=== PATIENT | female | born 1980 | race Caucasian/White ===

== ENCOUNTER 2017-08-04 12:51 | Outpatient (RCR) | payer MEDICARE, SELFPAY | END 2017-09-08 14:57 | disposition home or self-care (01) | LOC: PT 12:51 | PROVIDERS: Family Provider Internal Medicine Adolescent Medicine | DX: J44.9 Chronic obstructive pulmonary disease, unspecified (principal) | CPT/HCPCS: G0237; G0238; G0424 ==

== ENCOUNTER 2017-10-27 08:30 | Outpatient (RCR) | payer MEDICARE, SELFPAY | END 2017-10-27 08:31 | disposition home or self-care (01) | LOC: PT 08:30 | PROVIDERS: Family Provider Internal Medicine Adolescent Medicine; Visit Provider Family Medicine | DX: I89.0 Lymphedema, not elsewhere classified (principal) | CPT/HCPCS: 97140; 97162 ==

== ENCOUNTER 2018-02-28 08:04 | Outpatient (RCR) | payer MEDICARE, SELFPAY | END 2018-04-20 16:38 | disposition home or self-care (01) | LOC: PT 08:04 | DX: R09.02 Hypoxemia (principal) | CPT/HCPCS: G0237; G0238 ==

== ENCOUNTER → 2021-08-18 09:12 | Outpatient (CLI) | payer MEDICARE, SELFPAY ==
--- NOTE | 2021-08-18 09:17 | MR_ITS ---
FINAL REPORT CLINICAL HISTORY: PAIN IN LT ANKLE AND JOINTS OF LT FOOT. prior mri at [place] 2 months ago. fell 4 months ago. sprain ankle in brace x2wks. no recent injury or trauma. 28ml prohance given. FINDINGS: Multiplanar MR imaging of the left ankle was performed with and without contrast. The bony structures are intact without evidence of fracture, bone bruise or marrow edema. No osteochondral lesion is identified. There is thinning of the anterior talofibular ligament, favor partial tear. There is peroneus longus and brevis tenosynovitis with a partial longitudinal tear of the peroneus longus. No significant joint effusion is seen. The musculature is intact. There is no evidence of soft tissue mass or cyst. There is no abnormal contrast enhancement. IMPRESSION: Favor a partial tear of the anterior talofibular ligament. Partial tear of the peroneus longus with tenosynovitis as detailed above. Reviewed, Interpreted and Dictated by Hood Bucio III, MD Transcribed by Katerin Khan Authenticated by Hood Bucio III, MD on 08/18/2021 01:59:[address] [facility]
== END ==
PROVIDERS: PCP Family Medicine; Visit Provider Orthopaedic Surgery Adult Reconstructive Orthopaedic Surgery
DX: M25.572 Pain in left ankle and joints of left foot (principal)
CPT/HCPCS: 73723; A9576

== ENCOUNTER 2024-04-04 13:06 | Emergency (ER) | payer MEDICARE, SELFPAY ==
[2024-04-04 13:07] VITALS: BP 148/85; PULSE 119; RESP 19; TEMP 37.6; O2SAT 96; BMI 59.1
--- NOTE | 2024-04-04 13:12 | ECG_ITS ---
APPROVED REPORT Exam: Resting ECG HR:119 bpm ECG Measurements Heart Rate 119 AXES WY 155 P 51 QRSd 102 QRS 48 QT 301 T 10 QTc 371 Conclusion SINUS TACHYCARDIA LOW QRS VOLTAGE IN PRECORDIAL LEADS [QRS DEFLECTION < 1.0 mV IN CHEST LEADS] ABNORMAL RHYTHM ECG Electronically signed by : BITA STEVENS, 04/04/2024 15:30:28
[2024-04-04 13:25] LABS: Coronavirus 19, PCR Not Detected (NotDetected); Influenza B, PCR Not Detected (NotDetected)
--- NOTE | 2024-04-04 13:31 | HMH.EDGENADL ---
Discharge Plan Disposition Patient Disposition: Home, Self-Care Condition: Good Prescriptions Prescriptions: New oseltamivir [Tamiflu] 75 mg capsule 75 mg PO BID 5 Days Qty: 10 0RF Referrals Follow up/Referrals: Isai Marc [Primary Care Provider] - See instructions Activity Restrictions/Add. Instructions Additional Instructions/Restrictions: Please follow-up with your PCP next week for your recheck. Please return to the ER for any increasing work of breathing decreased oxygen saturation increasing oxygen needs as needed. Clinical Impressions Clinical Impression: Influenza A Instructions Patient Instructions: DI for Influenza -- Adult Print Language Print Language: Swazi Discharge ED Provider: Mario Natarajan General Adult HPI <IDALIA Marshall - Last Filed: 04/04/24 16:42> General Chief complaint: Shortness of Breath/Dyspnea Stated complaint: fever 102.7,SOA on O2,body aches Time Seen by Provider: 04/04/24 13:30 Mode of Arrival: Ambulatory Source of Information: Patient Limitations: No Limitations Description of Symptoms (Recalled from ER Triage Doc. by RN): pt presents to ED with c/o shortness of air, chest pressure, fever. pt does wear oxygen baseline, 2.5L. pt reports symptoms ongoing today. History of Present Illness HPI narrative: Patient presents for evaluation of fever and malaise. Patient at baseline has sarcoidosis and is on oxygen 01/11 secondary to that. This morning she woke up with a high fever with bodyaches dry cough and subjective dyspnea. She denies hemoptysis hematochezia melena nausea vomiting diarrhea increased work of breathing. Related Data Previous Rx's ?Medication ?Instructions ?Recorded oseltamivir 75 mg capsule (Tamiflu) 75 mg PO BID 5 days #10 caps 04/04/24 Allergies Allergy/AdvReac Type Severity Reaction Status Date / Time NO KNOWN ALLERGIES Allergy Uncoded 03/29/17 14:58 PFSH <IDALIA Marshall - Last Filed: 04/04/24 16:42> [facility] Disclaimer: The information contained in this section may have been updated after the patient was seen, as this information can be updated by other users. Social History (Updated 04/04/24 @ 14:59 by Mario Natarajan MD) Smoking Status: Former smoker alcohol intake: never current occupational status: other Travel in the last 8 weeks: None Have you lived/traveled outside US in past 30 days?: No Contact w/someone who lives/traveled outside US past 30 days?: No Exposure to someone with infectious disease in past 14 days?: No Do you have a fever (greater than 100.4 F or 38 C)?: Yes Have you tested positive for COVID-19: No Exposed to someone with COVID-19 in past 14 days?: No Do you have a sore throat?: No Do you have a cough?: Yes Do you have any weakness?: Yes Do you have any diarrhea?: No Are you experiencing any unusual bleeding?: No Do you have any muscle aches/pain?: Yes Do you have any abdominal pain?: No Are you experiencing loss of taste or smell?: No <IDALIA Marshall - Last Filed: 04/04/24 16:42> ROS Obtained: Yes Systems reviewed as appropriate & no additional complaints except as documented Physical Exam <IDALIA Marshall - Last Filed: 04/04/24 16:42> General General appearance: alert and in no apparent distress Respiratory Respiratory exam: Present wheezes (Right lower lobe only); Absent normal lung sounds bilaterally Cardiovascular Cardiovascular exam: Present tachycardia Neurological Exam Neurological exam: Present alert and oriented X3 Medical Decision Making <IDALIA Marshall - Last Filed: 04/04/24 16:42> Medical Records Medical records reviewed: Yes I reviewed the patient's medical records. Screening: Per USPSTF and CDC recommendations, given the prevalence of disease in our region, it is our hospital?s policy to screen for HIV and viral Hepatitis for all patients aged 18 and over and those with ongoing risk factors. Vital Signs: 04/04/24 13:07 04/04/24 14:30 04/04/24 15:00 Temperature 99.7 F H Temperature Source Oral Pulse Rate 96 H 88 Pulse Rate [Left Radial] 119 H Respiratory Rate 19 17 18 Blood Pressure 130/86 122/75 Blood Pressure [Right Arm] 148/85 H Blood Pressure Mean [Right Arm] 106 02 Sat by Pulse Oximetry 96 94 L 95 Oxygen Delivery Method Nasal Cannula Room Air Room Air Oxygen Flow Rate (LPM) 2 04/04/24 15:47 Temperature 97.8 F Temperature Source Oral Pulse Rate 86 Pulse Rate [Left Radial] Respiratory Rate 18 Blood Pressure 96/59 L Blood Pressure [Right Arm] Blood Pressure Mean [Right Arm] 02 Sat by Pulse Oximetry Oxygen Delivery Method Oxygen Flow Rate (LPM) Lab Data Lab results reviewed: Yes I reviewed the patient's lab results. Lab Results 04/04/24 13:01: WBC 9.0, RBC 4.39, Hgb 12.9, Hct 39.2, MCV 89.3, MCH 29.4, MCHC 32.9, RDW 13.9, Plt Count 201, MPV 10.9 H, Neut % (Auto) 86.6 H, Lymph % (Auto) 3.9 L, [place] % (Auto) 8.2, Eos % (Auto) 0.8, Baso % (Auto) 0.2, Neut # (Auto) 7.8, Lymph # (Auto) 0.4 L, [place] # (Auto) 0.7, Eos # (Auto) 0.1, Baso # (Auto) 0.0, Total Counted 100, Neutrophils % (Manual) 85 H, Band Neutrophils % 2.0, Lymphocytes % (Manual) 5 L, Monocytes % (Manual) 6, Eosinophils % (Manual) 1, Basophils % (Manual) 1.0, Platelet Estimate Normal, RBC Morphology Normal, Sodium 134 L, Potassium 3.9, Chloride 106, Carbon Dioxide 26, Anion Gap 5.9, BUN 12, Creatinine 0.80, Estimated Creat Clear 68, Estimated GFR 78, Est GFR ( Amer) 95, Glucose 96, Calcium 9.2, Total Bilirubin 0.6, AST 29, ALT 31, Alkaline Phosphatase 91, Troponin I 0.02, Total Protein 6.9, Albumin 4.1, Globulin 2.8, Albumin/Globulin Ratio 1.5, HIV Ag/Ab Combo Qual Negative 04/04/24 13:15: D-Dimer 0.85 H 04/04/24 13:21: SARS-CoV-2 (PCR) Not detected, Influenza A Untype (PCR) Detected A, Influenza Type B (PCR) Not detected 04/04/24 13:30: Magnesium 1.9, NT-Pro-B Natriuret Pep 61.3, TSH 1.31, Free T4 Index 2.6 L, Thyroxine (T4) 8.9, T3 Uptake 29 04/04/24 13:34: VBG pH 7.39, VBG pCO2 36.7, VBG pO2 79.3 H, VBG HCO3 21.8 L, VBG Total CO2 22.9 L, VBG O2 Saturation 95.8 H, VBG Base Excess -3.2 L, VBG Lactic Acid 1.8 04/04/24 13:01 04/04/24 13:01 Orders (Tests/Meds): ED MEDICATIONS Discontinued Medications Generic Name Dose Route Start Last Admin Trade Name Freq PRN Reason Stop Dose Admin Acetaminophen 1,000 mg 04/04/24 13:35 04/04/24 13:43 Acetaminophen 500mg Tab PO 04/04/24 13:36 1,000 mg ONCE ONE Administration Methylprednisolone Sodium Succinate 125 mg 04/04/24 13:35 04/04/24 13:44 Methylprednisolone Sod Succ 125mg Vial IV 04/04/24 13:36 125 mg ONCE ONE Administration Oseltamivir Phosphate 75 mg 04/04/24 14:51 04/04/24 15:14 Oseltamivir 75mg Capsule PO 04/04/24 14:52 75 mg ONCE ONE Administration ORDERS Category Date Time Status Chest XR -- portable [XR chest portable] Stat Exams 04/04/24 13:37 Completed BNP [NT Pro Brain Natriuretic Pep.] Stat Lab 04/04/24 13:30 Completed Complete Blood Count Auto Diff Stat Lab 04/04/24 13:01 Completed Comprehensive Metabolic Panel Stat Lab 04/04/24 13:01 Completed D-Dimer Stat Lab 04/04/24 13:15 Completed HIV Combo Stat Lab 04/04/24 13:01 Completed Hep C Ab with Reflex to RNA Stat Lab 04/04/24 13:01 Received Magnesium Stat Lab 04/04/24 13:30 Completed Rapid PCR Covid and Flu A/B Stat Lab 04/04/24 13:21 Completed Thyroid Panel Stat Lab 04/04/24 13:30 Completed Troponin I Stat Lab 04/04/24 13:01 Completed VBG [Venous Blood Gas] Stat RT 04/04/24 13:34 Completed Medical Decision Narrative: In summary patient is a 44-year-old female who presents to the emergency department for evaluation of fever and malaise. Patient is initially normotensive at 148/85 but tachycardic at 119 breathing 19 times a minute satting at 96% on 2 L by nasal cannula upon arrival, with a temperature of 99.7. Physical exam is remarkable for right lower lobe and expiratory wheezes but no increased work of breathing no accessory muscle use and left lung andino are clear to auscultation. Patient is in sinus tachycardia on the bedside monitor satting at 96% on her baseline 2 L. Differential diagnosis includes viral or bacterial respiratory tract infection. Initial workup will be conducted with hematologic labs respiratory swabs plain film chest x-ray. Initial interventions include Tylenol ibuprofen DuoNeb Decadron. Initial workup reviewed by me shows that she has normal white count however she has lymphopenia on her differential, chemistry panel is normal, mindful interpretation of plain from chest x-ray shows no evidence of acute infection, and her respiratory swab is positive for influenza A, and via years criteria she is ruled out for PE. Upon repeat evaluation reported significant subjective improvement after initial interventions. Given this patient is appropriate for discharge with a prescription for Tamiflu with first dose given here and strict return precautions. Mario Natarajan: I was consulted by the PIYUSH, and we discussed the complexity of the problems being addressed. I approved the treatment and management plan for this patient's care in the emergency department, thus performing a substantive portion of the medical decision making. D-dimer and possible diagnostic imaging as well as final disposition pending at time of transition of oncoming care to the oncoming physician, Dr. Gaytan. <Mario Natarajan MD - Last Filed: 04/04/24 14:59> [facility] Inquiry Pt receiving controlled substance: No Vital Signs: 04/04/24 13:07 04/04/24 14:30 04/04/24 15:00 Temperature 99.7 F H Temperature Source Oral Pulse Rate 96 H 88 Pulse Rate [Left Radial] 119 H Respiratory Rate 19 17 18 Blood Pressure 130/86 122/75 Blood Pressure [Right Arm] 148/85 H Blood Pressure Mean [Right Arm] 106 02 Sat by Pulse Oximetry 96 94 L 95 Oxygen Delivery Method Nasal Cannula Room Air Room Air Oxygen Flow Rate (LPM) 2 04/04/24 15:47 Temperature 97.8 F Temperature Source Oral Pulse Rate 86 Pulse Rate [Left Radial] Respiratory Rate 18 Blood Pressure 96/59 L Blood Pressure [Right Arm] Blood Pressure Mean [Right Arm] 02 Sat by Pulse Oximetry Oxygen Delivery Method Oxygen Flow Rate (LPM) Lab Data Lab Results 04/04/24 13:01: WBC 9.0, RBC 4.39, Hgb 12.9, Hct 39.2, MCV 89.3, MCH 29.4, MCHC 32.9, RDW 13.9, Plt Count 201, MPV 10.9 H, Neut % (Auto) 86.6 H, Lymph % (Auto) 3.9 L, [place] % (Auto) 8.2, Eos % (Auto) 0.8, Baso % (Auto) 0.2, Neut # (Auto) 7.8, Lymph # (Auto) 0.4 L, [place] # (Auto) 0.7, Eos # (Auto) 0.1, Baso # (Auto) 0.0, Total Counted 100, Neutrophils % (Manual) 85 H, Band Neutrophils % 2.0, Lymphocytes % (Manual) 5 L, Monocytes % (Manual) 6, Eosinophils % (Manual) 1, Basophils % (Manual) 1.0, Platelet Estimate Normal, RBC Morphology Normal, Sodium 134 L, Potassium 3.9, Chloride 106, Carbon Dioxide 26, Anion Gap 5.9, BUN 12, Creatinine 0.80, Estimated Creat Clear 68, Estimated GFR 78, Est GFR ( Amer) 95, Glucose 96, Calcium 9.2, Total Bilirubin 0.6, AST 29, ALT 31, Alkaline Phosphatase 91, Troponin I 0.02, Total Protein 6.9, Albumin 4.1, Globulin 2.8, Albumin/Globulin Ratio 1.5, HIV Ag/Ab Combo Qual Negative 04/04/24 13:15: D-Dimer 0.85 H 04/04/24 13:21: SARS-CoV-2 (PCR) Not detected, Influenza A Untype (PCR) Detected A, Influenza Type B (PCR) Not detected 04/04/24 13:30: Magnesium 1.9, NT-Pro-B Natriuret Pep 61.3, TSH 1.31, Free T4 Index 2.6 L, Thyroxine (T4) 8.9, T3 Uptake 29 04/04/24 13:34: VBG pH 7.39, VBG pCO2 36.7, VBG pO2 79.3 H, VBG HCO3 21.8 L, VBG Total CO2 22.9 L, VBG O2 Saturation 95.8 H, VBG Base Excess -3.2 L, VBG Lactic Acid 1.8 Orders (Tests/Meds): ED MEDICATIONS Discontinued Medications Generic Name Dose Route Start Last Admin Trade Name Freq PRN Reason Stop Dose Admin Acetaminophen 1,000 mg 04/04/24 13:35 04/04/24 13:43 Acetaminophen 500mg Tab PO 04/04/24 13:36 1,000 mg ONCE ONE Administration Methylprednisolone Sodium Succinate 125 mg 04/04/24 13:35 04/04/24 13:44 Methylprednisolone Sod Succ 125mg Vial IV 04/04/24 13:36 125 mg ONCE ONE Administration Oseltamivir Phosphate 75 mg 04/04/24 14:51 04/04/24 15:14 Oseltamivir 75mg Capsule PO 04/04/24 14:52 75 mg ONCE ONE Administration ORDERS Category Date Time Status Chest XR -- portable [XR chest portable] Stat Exams 04/04/24 13:37 Completed BNP [NT Pro Brain Natriuretic Pep.] Stat Lab 04/04/24 13:30 Completed Complete Blood Count Auto Diff Stat Lab 04/04/24 13:01 Completed Comprehensive Metabolic Panel Stat Lab 04/04/24 13:01 Completed D-Dimer Stat Lab 04/04/24 13:15 Completed HIV Combo Stat Lab 04/04/24 13:01 Completed Hep C Ab with Reflex to RNA Stat Lab 04/04/24 13:01 Received Magnesium Stat Lab 04/04/24 13:30 Completed Rapid PCR Covid and Flu A/B Stat Lab 04/04/24 13:21 Completed Thyroid Panel Stat Lab 04/04/24 13:30 Completed Troponin I Stat Lab 04/04/24 13:01 Completed VBG [Venous Blood Gas] Stat RT 04/04/24 13:34 Completed ECG Data Tracing #1: Independently interpreted by me rate is 119, rhythm is regular, axis is normal, no ST elevation in anatomical contiguous leads, QTc 371. Medical Decision Narrative: In summary patient is a [age, sex] who presents to the emergency department for evaluation of [complaint]. Patient is [hemodynamically stable/unstable] upon arrival, [febrile/afebrile]. [Unremarkable physical exam, nonfocal exam versus focal remarkable exam]. Differential diagnosis includes [DDx]. Initial workup will be conducted with [hematologic labs, imaging, respiratory swab, describe workup]. Initial interventions include [crystalloid bolus, medications, p.o. challenge, etc.] initial workup reviewed by me [hematologic labs are remarkable for... Imaging remarkable for... Urinalysis remarkable for]. Upon repeat evaluation [patient had acceptable resolution of symptoms, had persistent pain for which additional interventions were conducted (describe interventions), tolerated p.o., was ambulatory, etc.]. Given this [patient is appropriate for discharge at this time and will be discharged with a prescription for... The case was discussed with hospital medicine regarding management and they will admit the patient their service for continued evaluation at this time... Etc.] Places where you can increase complexity: I informally interpreted the patient's chest x-ray or CT read and is remarkable for... Documenting what the pump attendant shows with rate and rhythm Consideration of test but deferring. Ex: I considered chest x-ray on this patient however given that they have no oxygen requirement and are clear to auscultation all lung andino will be deferred. Social determinants of health: Given that patient is undomiciled increases complexity. Given that patient has polysubstance abuse compounds all aspects of care Mario Natarajan: I was consulted by the PIYUSH, and we discussed the complexity of the problems being addressed. I approved the treatment and management plan for this patient's care in the emergency department, thus performing a substantive portion of the medical decision making. D-dimer and possible diagnostic imaging as well as final disposition pending at time of transition of oncoming care to the oncoming physician, Dr. Gaytan. <Carolyn Gaytan, DO - Last Filed: 04/04/24 22:08> Vital Signs: 04/04/24 13:07 04/04/24 14:30 04/04/24 15:00 Temperature 99.7 F H Temperature Source Oral Pulse Rate 96 H 88 Pulse Rate [Left Radial] 119 H Respiratory Rate 19 17 18 Blood Pressure 130/86 122/75 Blood Pressure [Right Arm] 148/85 H Blood Pressure Mean [Right Arm] 106 02 Sat by Pulse Oximetry 96 94 L 95 Oxygen Delivery Method Nasal Cannula Room Air Room Air Oxygen Flow Rate (LPM) 2 04/04/24 15:47 Temperature 97.8 F Temperature Source Oral Pulse Rate 86 Pulse Rate [Left Radial] Respiratory Rate 18 Blood Pressure 96/59 L Blood Pressure [Right Arm] Blood Pressure Mean [Right Arm] 02 Sat by Pulse Oximetry Oxygen Delivery Method Oxygen Flow Rate (LPM) Lab Data Lab Results 04/04/24 13:01: WBC 9.0, RBC 4.39, Hgb 12.9, Hct 39.2, MCV 89.3, MCH 29.4, MCHC 32.9, RDW 13.9, Plt Count 201, MPV 10.9 H, Neut % (Auto) 86.6 H, Lymph % (Auto) 3.9 L, [place] % (Auto) 8.2, Eos % (Auto) 0.8, Baso % (Auto) 0.2, Neut # (Auto) 7.8, Lymph # (Auto) 0.4 L, [place] # (Auto) 0.7, Eos # (Auto) 0.1, Baso # (Auto) 0.0, Total Counted 100, Neutrophils % (Manual) 85 H, Band Neutrophils % 2.0, Lymphocytes % (Manual) 5 L, Monocytes % (Manual) 6, Eosinophils % (Manual) 1, Basophils % (Manual) 1.0, Platelet Estimate Normal, RBC Morphology Normal, Sodium 134 L, Potassium 3.9, Chloride 106, Carbon Dioxide 26, Anion Gap 5.9, BUN 12, Creatinine 0.80, Estimated Creat Clear 68, Estimated GFR 78, Est GFR ( Amer) 95, Glucose 96, Calcium 9.2, Total Bilirubin 0.6, AST 29, ALT 31, Alkaline Phosphatase 91, Troponin I 0.02, Total Protein 6.9, Albumin 4.1, Globulin 2.8, Albumin/Globulin Ratio 1.5, HIV Ag/Ab Combo Qual Negative 04/04/24 13:15: D-Dimer 0.85 H 04/04/24 13:21: SARS-CoV-2 (PCR) Not detected, Influenza A Untype (PCR) Detected A, Influenza Type B (PCR) Not detected 04/04/24 13:30: Magnesium 1.9, NT-Pro-B Natriuret Pep 61.3, TSH 1.31, Free T4 Index 2.6 L, Thyroxine (T4) 8.9, T3 Uptake 29 04/04/24 13:34: VBG pH 7.39, VBG pCO2 36.7, VBG pO2 79.3 H, VBG HCO3 21.8 L, VBG Total CO2 22.9 L, VBG O2 Saturation 95.8 H, VBG Base Excess -3.2 L, VBG Lactic Acid 1.8 Orders (Tests/Meds): ED MEDICATIONS Discontinued Medications Generic Name Dose Route Start Last Admin Trade Name Benjamin PRN Reason Stop Dose Admin Acetaminophen 1,000 mg 04/04/24 13:35 04/04/24 13:43 Acetaminophen 500mg Tab PO 04/04/24 13:36 1,000 mg ONCE ONE Administration Methylprednisolone Sodium Succinate 125 mg 04/04/24 13:35 04/04/24 13:44 Methylprednisolone Sod Succ 125mg Vial IV 04/04/24 13:36 125 mg ONCE ONE Administration Oseltamivir Phosphate 75 mg 04/04/24 14:51 04/04/24 15:14 Oseltamivir 75mg Capsule PO 04/04/24 14:52 75 mg ONCE ONE Administration ORDERS Category Date Time Status Chest XR -- portable [XR chest portable] Stat Exams 04/04/24 13:37 Completed BNP [NT Pro Brain Natriuretic Pep.] Stat Lab 04/04/24 13:30 Completed Complete Blood Count Auto Diff Stat Lab 04/04/24 13:01 Completed Comprehensive Metabolic Panel Stat Lab 04/04/24 13:01 Completed D-Dimer Stat Lab 04/04/24 13:15 Completed HIV Combo Stat Lab 04/04/24 13:01 Completed Hep C Ab with Reflex to RNA Stat Lab 04/04/24 13:01 Received Magnesium Stat Lab 04/04/24 13:30 Completed Rapid PCR Covid and Flu A/B Stat Lab 04/04/24 13:21 Completed Thyroid Panel Stat Lab 04/04/24 13:30 Completed Troponin I Stat Lab 04/04/24 13:01 Completed VBG [Venous Blood Gas] Stat RT 04/04/24 13:34 Completed Medical Decision Narrative: In summary patient is a 44-year-old female who presents to the emergency department for evaluation of fever and malaise. Patient is initially normotensive at 148/85 but tachycardic at 119 breathing 19 times a minute satting at 96% on 2 L by nasal cannula upon arrival, with a temperature of 99.7. Physical exam is remarkable for right lower lobe and expiratory wheezes but no increased work of breathing no accessory muscle use and left lung andino are clear to auscultation. Patient is in sinus tachycardia on the bedside monitor satting at 96% on her baseline 2 L. Differential diagnosis includes viral or bacterial respiratory tract infection. Initial workup will be conducted with hematologic labs respiratory swabs plain film chest x-ray. Initial interventions include Tylenol ibuprofen DuoNeb Decadron. Initial workup reviewed by me shows that she has normal white count however she has lymphopenia on her differential, chemistry panel is normal, mindful interpretation of plain from chest x-ray shows no evidence of acute infection, and her respiratory swab is positive for influenza A, and via years criteria she is ruled out for PE. Upon repeat evaluation reported significant subjective improvement after initial interventions. Given this patient is appropriate for discharge with a prescription for Tamiflu with first dose given here and strict return precautions. Mario Natarajan: I was consulted by the PIYUSH, and we discussed the complexity of the problems being addressed. I approved the treatment and management plan for this patient's care in the emergency department, thus performing a substantive portion of the medical decision making. D-dimer and possible diagnostic imaging as well as final disposition pending at time of transition of oncoming care to the oncoming physician, Dr. Gaytan. I was consulted by the PIYUSH, and we discussed the complexity of the problems being addressed. I approved the treatment and management plan for this patient's care in the emergency department, thus performing a substantive portion of the medical decision making. Carolyn Gaytan, DO Critical Care <Mario Natarajan MD - Last Filed: 04/04/24 14:59> Critical Care Time Critical Care Time: No
--- NOTE | 2024-04-04 13:37 | XR_ITS ---
PROCEDURE INFORMATION: Exam: XR Chest Exam date and time: 04/04/2024 1:57 PM Age: 44 years old Clinical indication: Dyspnea; Additional info: Tachycardia fever shortness of breath TECHNIQUE: Imaging protocol: Radiologic exam of the chest. Views: 1 view. COMPARISON: No relevant prior studies available. FINDINGS: Lungs: Infiltrates versus atelectasis at the right lung base. The upper lung zones are clear. Pleural spaces: Unremarkable. No pleural effusion. No pneumothorax. Heart/Mediastinum: Unremarkable. No cardiomegaly. Bones/joints: Unremarkable. IMPRESSION: Infiltrate versus atelectasis of the right lung base.
[2024-04-04 13:38] LABS: Lactate Venous 1.8 mmol/L (0.4-2.0); VBG Base Excess -3.2 mmol/L (-2.4-2.3); VBG HCO3 21.8 mmol/L (23-30); VBG Oxygen Saturation 95.8 % (50-70); VBG PCO2 36.7 mmol/L (35-51); VBG PH 7.39 mmol/L (7.31-7.41); VBG PO2 79.3 mmol/L (28-40); VBG Total CO2 22.9 mmol/L (23-27)
[2024-04-04 13:39] LABS: Albumin Level 4.1 g/dl (3.5-5.0); Chloride 106 mmol/L (98-107); Sodium 134 mmol/L (136-145)
[2024-04-04 13:40] LABS: Potassium 3.9 mmoL/L (3.5-5.1)
[2024-04-04 13:42] LABS: Alanine Aminotransferase 31 U/L (12-78); Albumin/Globulin Ratio 1.5 (1.1-1.8); Anion Gap 5.9 mEq/L (5-15); Aspartate Amino Transferase 29 U/L (14-36); Blood Urea Nitrogen 12 mg/dl (7-17); Carbon Dioxide 26 mmol/L (22.0-30.0); Creatinine Clearance Estimated 68 mL/min (50-200); Estimated Glomerular Filt Rate 78 ml/min (>60); GFR (African American) 95 ML/MIN (>60); Globulin 2.8 g/dL (1.3-3.2); Total Protein,Serum 6.9 g/dl (6.3-8.2)
[2024-04-04 13:43] LABS: Alkaline Phosphatase 91 U/L (38-126); Bilirubin,Total 0.6 mg/dl (0.2-1.3); Calcium 9.2 mg/dl (8.4-10.2); Glucose 96 mg/dl (74-100)
[2024-04-04] MEDS: ACETAMINOPHEN 500MG TAB 1000 MG PO (13:43)
[2024-04-04] MEDS: METHYLPREDNISOLONE SOD SUCC 125MG VIAL 125 MG IV (13:44)
[2024-04-04 13:53] LABS: Troponin I 0.02 ng/ml (0.00-0.034)
[2024-04-04 13:57] LABS: Basophils % 0.2 % (0.1-2.0); Eosinophils # 0.1 K/mm3 (0.0-0.4); Eosinophils % 0.8 % (0.1-12.0); Hematocrit 39.2 % (37.0-47.0); Hemoglobin 12.9 g/dL (12.2-16.2); Lymphocytes # 0.4 K/mm3 (0.7-4.5); Lymphocytes % 3.9 % (10-50); Mean Corpuscular HGB Conc 32.9 g/dL (31.8-35.4); Mean Corpuscular Hemoglobin 29.4 pg (27.0-31.2); Mean Corpuscular Volume 89.3 fl (81-99); Mean Platelet Volume 10.9 fl (7.4-10.4); Monocytes # 0.7 K/mm3 (0.1-1.0); Monocytes % 8.2 % (1.7-9.3); Neutrophils # 7.8 K/mm3 (1.8-7.8); Neutrophils % 86.6 % (37.0-80.0); Platelet Count 201 K/mm3 (142-424); Red Blood Count 4.39 M/mm3 (4.20-5.40); Red Cell Distribution Width 13.9 % (11.5-17.5)
[2024-04-04 13:59] LABS: MANUAL DIFFERENTIAL MANUAL DIFFERENTIAL (MANUAL DIFF)
[2024-04-04 14:20] LABS: Magnesium 1.9 mg/dl (1.6-2.3)
[2024-04-04 14:29] LABS: NT Pro Brain Natriuretic Pep. 61.3 pg/mL (0-125)
[2024-04-04 14:30] VITALS: BP 130/86; PULSE 96; RESP 17; O2SAT 94
[2024-04-04 14:30] LABS: Influenza A, PCR Detected (NotDetected)
[2024-04-04 14:35] LABS: Eosinophils % 1 % (0-3); Lymphocytes % 5 % (10-50); Monocytes % 6 % (2-9); Neutrophils % 85 % (42-76); Platelet Estimate Normal; RBC Morphology Normal; Total Cells Counted 100
[2024-04-04 14:38] LABS: Triiodothryronine (T3) Uptake 29 % (23.5-40.5)
[2024-04-04 14:52] LABS: Thyroid Stimulating Hormone 1.31 uIU/mL (0.465-4.68)
[2024-04-04 14:59] LABS: HIV Combo NEGATIVE (Negative)
[2024-04-04 15:00] VITALS: BP 122/75; PULSE 88; RESP 18; O2SAT 95
[2024-04-04] MEDS: OSELTAMIVIR 75MG CAPSULE 75 MG PO (15:14)
[2024-04-04 15:19] LABS: D-Dimer 0.85 ug/mL (0.0-0.5)
--- NOTE | 2024-04-04 15:21 | PC.NURSE ---
rounded on pt and helped pt ambulate to bathroom.
[2024-04-04 15:25] LABS: Free Thyroxine Index 2.6 ug/dL (5.93-13.13); T4 (Thyroxine) 8.9 ug/dl (5.53-11.0)
[2024-04-04 15:47] VITALS: BP 96/59; PULSE 86; RESP 18; TEMP 36.6; O2SAT 98
[2024-04-06 07:08] LABS: HCV Ab Non Reactive (Non Reactive)
== END 2024-04-04 15:48 | disposition home or self-care (01) ==
PROVIDERS: Physician Assistant; Emergency Provider Emergency Medicine; PCP Family Medicine
DX: J10.1 Influenza due to other identified influenza virus with other respiratory manifestations (principal); R06.02 Shortness of breath; R07.89 Other chest pain; R50.9 Fever, unspecified; M79.10 Myalgia, unspecified site; R05.8 Other specified cough; R06.00 Dyspnea, unspecified
CPT/HCPCS: 71045; 80053; 82803; 83735; 83880; 84436; 84443; 84479; 84484; 85007; 85025; 85027; 85378; 86803; 87389; 87636; 93005; 96374; 99284; J2919

== ENCOUNTER 2024-08-26 17:47 | Emergency (ER) | payer MEDICARE, SELFPAY ==
[2024-08-26 18:00] VITALS: BP 118/71; PULSE 87; RESP 26; TEMP 36.6; O2SAT 96; BMI 59.1
--- NOTE | 2024-08-26 18:00 | ECG_ITS ---
APPROVED REPORT Exam: Resting ECG HR:90 bpm ECG Measurements Heart Rate 90 AXES LA 144 P 52 QRSd 86 QRS 40 QT 331 T 37 QTc 379 Conclusion Sinus rhythm Electronically signed by : SEB DICKENS, 08/30/2024 18:29:27
[2024-08-26 18:08] VITALS: BP 118/71; PULSE 89; RESP 16; O2SAT 95
[2024-08-26] MEDS: METHYLPREDNISOLONE SOD SUCC 125MG VIAL 125 MG IV (18:11)
[2024-08-26] MEDS: IPRATROPIUM/ALBUTEROL 3 ML NEB 9 ML IH (18:11)
[2024-08-26 18:12] LABS: VBG Base Excess 1.8 mmol/L (-2.4-2.3); VBG HCO3 25.9 mmol/L (23-30); VBG PCO2 38.4 mmol/L (35-51); VBG PH 7.45 mmol/L (7.31-7.41); VBG PO2 97.8 mmol/L (28-40)
[2024-08-26] MEDS: MAGNESIUM SULFATE IN WATER 2 GM/50 ML PIGGYBACK IV (18:12)
[2024-08-26 18:13] LABS: Lactate Venous 3.1 mmol/L (0.4-2.0)
[2024-08-26 18:14] LABS: Basophils % 0.2 % (0.1-2.0); Eosinophils % 0.1 % (0.1-12.0); Hematocrit 43.2 % (37.0-47.0); Immature Granulocytes # 0.12 10^3uL; Immature Granulocytes % 0.9 %; Lymphocytes # 0.6 K/mm3 (0.7-4.5); Lymphocytes % 4.6 % (10-50); Mean Corpuscular HGB Conc 32.4 g/dL (31.8-35.4); Mean Corpuscular Hemoglobin 28.9 pg (27.0-31.2); Mean Corpuscular Volume 89.3 fl (81-99); Mean Platelet Volume 10.7 fl (7.4-10.4); Monocytes # 0.3 K/mm3 (0.1-1.0); Monocytes % 2.2 % (1.7-9.3); Neutrophils # 12.4 K/mm3 (1.8-7.8); Nucleated Red Blood Cells # 0 10^3/uL; Nucleated Red Blood Cells % 0 %; Platelet Count 260 K/mm3 (142-424); Red Blood Count 4.84 M/mm3 (4.20-5.40); Red Cell Distribution Width 13.7 % (11.5-17.5); Red Cell Distribution Width-SD 44.4 fL; White Blood Count 13.5 K/mm3 (4.8-10.8)
[2024-08-26 18:18] LABS: Albumin Level 4.3 g/dl (3.5-5.0); Chloride 105 mmol/L (98-107); Sodium 139 mmol/L (136-145)
[2024-08-26 18:20] LABS: Blood Urea Nitrogen 15 mg/dl (7-17); Creatinine Clearance Estimated 68 mL/min (50-200); Estimated Glomerular Filt Rate 78 ml/min (>60); GFR (African American) 95 ML/MIN (>60)
--- NOTE | 2024-08-26 18:20 | CT_ITS ---
PROCEDURE INFORMATION: Exam: CTA Chest With Contrast Exam date and time: 08/26/2024 6:38 PM Age: 44 years old Clinical indication: Abnormal findings; Abnormal diagnostic tests; Elevated d-dimer; Shortness of breath; Additional info: Shortness of breath, hypoxia, dimer TECHNIQUE: Imaging protocol: Computed tomographic angiography of the chest with contrast. Exam focused on the arteries. 3D rendering (Not supervised by radiologist): MIP and/or 3D reconstructed images were created by the technologist. Radiation optimization: All CT scans at this facility use at least one of these dose optimization techniques: automated exposure control; mA and/or kV adjustment per patient size (includes targeted exams where dose is matched to clinical indication); or iterative reconstruction. Contrast material: ISOUVE 370; Contrast volume: 70 ml; Contrast route: INTRAVENOUS (IV); COMPARISON: CR XR CHEST PORTABLE 04/04/2024 1:57 PM FINDINGS: Pulmonary arteries: No large central pulmonary emboli are identified. Assessment of the small peripheral branch vessels was limited by body habitus and image noise along with mild motion artifact, however no suspected peripheral emboli are identified. Aorta: No aortic aneurysm or dissection. No mediastinal hematoma. Thyroid: The visualized thyroid gland demonstrates no gross abnormality. Lungs: Question mild bilateral bronchial wall thickening suspicious for bronchitis or bronchial edema. Patchy mild bilateral mid to basilar ground-glass attenuation which is likely subsegmental atelectasis related to hypoventilatory changes or bronchiolitis. No pulmonary mass lesions are identified. Pleural spaces: No pleural effusion. No pneumothorax. Heart: Heart size normal. No pericardial effusion. Coronary arteries: No coronary artery calcification. Esophagus: The esophagus is largely contracted but demonstrates no gross abnormality. Mediastinal space: Granulomatous calcifications in the lungs, analia, and mediastinum. Lymph nodes: No supraclavicular or axillary adenopathy. No mediastinal or hilar adenopathy. Liver: Granulomatous calcifications in the liver. Pancreas: Question mild stranding around the pancreatic head, correlate clinically for evidence of pancreatitis. No ductal dilatation. Spleen: Granulomatous calcifications in the spleen without acute splenic abnormality. Bones/joints: No acute osseous abnormalities. Mild thoracic spondylosis. Soft tissues: No acute soft tissue abnormalities. IMPRESSION: 1. No pulmonary emboli are identified. Small branch assessment technically limited although no suspected peripheral emboli were identified. 2. Mild bronchial wall thickening suggesting bronchitis or bronchial edema. 3. Faint ground-glass attenuation in the mid and basilar lung andino is felt to represent minor subsegmental atelectasis from hypoventilatory changes or bronchiolitis. No consolidative pulmonary infiltrates. 4. Questionable mild stranding around the pancreatic head, marginally visualized, correlate clinically for evidence of pancreatitis.
[2024-08-26 18:21] LABS: Alanine Aminotransferase 40 U/L (12-78); Albumin/Globulin Ratio 1.5 (1.1-1.8); Alkaline Phosphatase 89 U/L (38-126); Aspartate Amino Transferase 28 U/L (14-36); Bilirubin,Total 0.4 mg/dl (0.2-1.3); Calcium 9.1 mg/dl (8.4-10.2); Carbon Dioxide 27 mmol/L (22.0-30.0); Globulin 2.9 g/dL (1.3-3.2); Glucose 147 mg/dl (74-100); Total Protein,Serum 7.2 g/dl (6.3-8.2)
[2024-08-26 18:22] LABS: Activated Partial Thrombo Time 23.6 seconds (22.8-30.6); INR 0.95 (0.9-1.1); Prothrombin Time 10.6 seconds (10.1-12.5)
--- NOTE | 2024-08-26 18:22 | [facility].EDCP ---
Discharge Plan Disposition Patient Disposition: Home, Self-Care Prescriptions Prescriptions: New doxycycline hyclate 100 mg capsule 100 mg PO BID 5 Days Qty: 10 0RF ipratropium-albuterol 0.5 mg-3 mg(2.5 mg base)/3 mL solution for nebulization 3 ml inhalation Q4H PRN (Reason: shortness of breath) Qty: 180 2RF Rx Instructions: until breathing returns to target peak flow/parameters No Action oseltamivir [Tamiflu] 75 mg capsule 75 mg PO BID 5 Days Qty: 10 0RF Referrals Follow up/Referrals: Isai Marc [Primary Care Provider] - See instructions Activity Restrictions/Add. Instructions Additional Instructions/Restrictions: Call your family doctor to establish care for this visit to the emergency department and schedule follow-up within 48 hours to ensure improvement. If you have any worsening of your condition or any other concerning signs or symptoms, return to the emergency department or your primary care doctor for further evaluation. Doxycycline twice daily for 5 days. While taking doxycycline, limit sunlight exposure. It can cause severe sunburns even if you do not typically get sunburn. Be sure to wear hats, long sleeves, sunscreen if you are out in the sun for prolonged periods of time while taking doxycycline. Clinical Impressions Clinical Impression: Acute exacerbation of chronic obstructive pulmonary disease, Acute bronchitis due to human metapneumovirus (hMPV) Print Language Print Language: American Discharge ED Provider: Burak Hernandez HPI General Chief Complaint: Shortness of Breath/Dyspnea Stated Complaint: thinks might have pneumonia Time Seen by Provider: 08/26/24 17:51 Mode of Arrival: Wheelchair Source of Information: Patient and Spouse Description of Symptoms (Recalled from ER Triage Doc. by RN): pt is here today for soa, pt has hx of copd sarcoidosis, is aubily wheezing History of Present Illness HPI narrative: Please note that above description of symptoms, in this electronic medical record under categorization of recalled from ER triage doctor by RN are reflective of an initial nursing assessment, however, is not reflective of my full history and physical exam that was personally taken and clarified. Consequentially, this preceding description of symptoms, which may include the patient's categorized chief complaint in the EMR, do not reflect my personal clinical impression, and the ultimate description of history of present illness and patient stated complaints should be deferred to this section of the note. Unless stated otherwise or congruent with this section of the note, additional signs, symptoms, or incongruence should be interpreted as inaccurate with my clinical impression. Related Data Previous Rx's ?Medication ?Instructions ?Recorded oseltamivir 75 mg capsule (Tamiflu) 75 mg PO BID 5 days #10 caps 04/04/24 doxycycline hyclate 100 mg capsule 100 mg PO BID 5 days #10 caps 08/26/24 ipratropium 0.5 mg-albuterol 3 mg 3 ml inhalation Q4H PRN shortness 08/26/24 (2.5 mg base)/3 mL nebulization of breath #180 mL soln Allergies Allergy/AdvReac Type Severity Reaction Status Date / Time NO KNOWN ALLERGIES Allergy Uncoded 03/29/17 14:58 [facility] Disclaimer: The information contained in this section may have been updated after the patient was seen, as this information can be updated by other users. Social History (Updated 04/04/24 @ 14:59 by Mario Natarajan MD) Smoking Status: Never smoker alcohol intake: never current occupational status: other Travel in the last 8 weeks?: None Have you lived/traveled outside [place] in past 30 days?: No Contact w/someone who lives/traveled outside [place] past 30 days?: No Exposure to someone with infectious disease in past 14 days?: No Do you have a fever (greater than 100.4 F or 38 C)?: No Have you tested positive for COVID-19?: No Exposed to someone with COVID-19 in past 14 days?: No Do you have a sore throat?: No Do you have a cough?: No Do you have any weakness?: Yes Do you have any diarrhea?: No Are you experiencing any unusual bleeding?: No Do you have any muscle aches/pain?: No Do you have any abdominal pain?: No Are you experiencing loss of taste or smell?: No ROS Obtained: Yes All systems reviewed & no additional complaints except as documented Physical Exam General General appearance: alert, in distress and obese Neck Neck exam: Present trachea midline Chest Chest inspection: Present normal inspection and symmetric chest wall rise Respiratory Respiratory exam: Present respiratory distress, wheezes, accessory muscle use and other (Speaking in full sentences, but appears to be working pretty hard to do so. Tachypneic, increased work of breathing); Absent stridor or prolonged expiratory phase Cardiovascular Cardiovascular exam: Present regular rate, normal rhythm and other (Pulses equal and symmetric in upper and lower extremities) Extremities Exam Extremities exam: Absent edema Neurological Exam Neurological exam: Present alert, oriented X3 and CN II-XII intact Skin Skin exam: Present warm and dry; Absent cyanosis, diaphoresis or pallor HEART Score HEART Score HEART Score assessment performed?: Yes HEART Score: 1 Critical Care Critical Care Time Critical Care Time: Yes (resp) Attestation: On 08/26/24, the high probability of a clinically significant, sudden or life threatening deterioration of the following system(s) required my full and direct attention, intervention and personal management. The time I documented below is in addition to time spent performing reported procedures but includes the following listed in this critical care notation. Total Time Total Critical Care Time: 35 Medical Decision Making Medical Records Medical records reviewed: Yes I reviewed the patient's medical records. T[place]anda Inquiry Pt receiving controlled substance: No Tawanda was queried for this patient: No Vital Signs Vital Signs: 08/26/24 18:00 08/26/24 18:08 08/26/24 18:30 Temperature 97.9 F Temperature Source Oral Pulse Rate 89 84 Pulse Rate [Left Radial] 87 Respiratory Rate 26 H 16 Blood Pressure 118/71 130/85 Blood Pressure [Right Arm] 118/71 Blood Pressure Mean [Right Arm] 86 02 Sat by Pulse Oximetry 96 95 96 Oxygen Delivery Method Nasal Cannula Nasal Cannula Nasal Cannula Oxygen Flow Rate (LPM) 3 Lab Data Labs: Lab Results 08/26/24 18:00: WBC 13.5 H, RBC 4.84, Hgb 14.0, Hct 43.2, MCV 89.3, MCH 28.9, MCHC 32.4, RDW 13.7, Plt Count 260, MPV 10.7 H, Neut % (Auto) 92.0 H, Lymph % (Auto) 4.6 L, Hand % (Auto) 2.2, Eos % (Auto) 0.1, Baso % (Auto) 0.2, Neut # (Auto) 12.4 H, Lymph # (Auto) 0.6 L, Hand # (Auto) 0.3, Eos # (Auto) 0.0, Baso # (Auto) 0.0, PT 10.6, INR 0.95, APTT 23.6, D-Dimer 0.81 H, Sodium 139, Potassium 4.0, Chloride 105, Carbon Dioxide 27, Anion Gap 11.0, BUN 15, Creatinine 0.80, Estimated Creat Clear 68, Estimated GFR 78, Est GFR ( Amer) 95, Glucose 147 H, Calcium 9.1, Total Bilirubin 0.4, AST 28, ALT 40, Alkaline Phosphatase 89, Troponin I < 0.01, NT-Pro-B Natriuret Pep 45.7, Total Protein 7.2, Albumin 4.3, Globulin 2.9, Albumin/Globulin Ratio 1.5, Serum HCG, Qual Negative 08/26/24 18:05: VBG pH 7.45 H, VBG pCO2 38.4, VBG pO2 97.8 H, VBG HCO3 25.9, VBG Total CO2 27.0, VBG O2 Saturation 98.0 H, VBG Base Excess 1.8, VBG Lactic Acid 3.1 H 08/26/24 18:18: Chlamy pneumoniae PCR Not detected, Adenovirus (PCR) Not detected, B. pertussis DNA (PCR) Not detected, Coronavirus OC43 (PCR) Not detected, Coronavirus HKU1 (PCR) Not detected, Coronavirus 229E (PCR) Not detected, SARS-CoV-2 (PCR) Not detected, Coronavirus NL63 (PCR) Not detected, Human Metapneumovir PCR Detected A, Influenza A (H1) PCR Not detected, Influ A (H1N1/09) PCR Not detected, Influenza A (H3) PCR Not detected, Influenza Type A (PCR) Not detected, Influenza Type B (PCR) Not detected, M. pneumoniae (PCR) Not detected, Parainfluenza 1 (PCR) Not detected, Parainfluenza 2 (PCR) Not detected, Parainfluenza 3 (PCR) Not detected, Parainfluenza 4 (PCR) Not detected, RSV (PCR) Not detected, Entero/Rhino (PCR) Not detected 08/26/24 18:00 08/26/24 18:00 Response Orders (Tests/Meds): ED MEDICATIONS Generic Name Dose Route Start Last Admin Trade Name Freq PRN Reason Stop Dose Admin Sodium Chloride 10 ml 08/26/24 18:54 08/26/24 18:56 Sodium Chloride 0.9% 10ml Syr (Rad Only) IV 09/25/24 18:53 10 ml NEEDED PRN Administration Maintain IV Site Discontinued Medications Generic Name Dose Route Start Last Admin Trade Name Joelq PRN Reason Stop Dose Admin Albuterol/Ipratropium 9 ml 08/26/24 18:05 08/26/24 18:11 Ipratropium/Albuterol 3 Ml Neb IH 08/26/24 18:06 9 ml ONCE ONE Administration Magnesium Sulfate 2 gm in 50 mls @ 50 mls/hr 08/26/24 18:05 08/26/24 18:12 Magnesium Sulfate 2gm/50ml Premix IV 08/26/24 19:04 50 mls/hr ONCE ONE Administration Ceftriaxone Sodium 2 gm/ 100 mls @ 200 mls/hr 08/26/24 18:15 08/26/24 19:05 Sodium Chloride IV 08/26/24 18:44 200 mls/hr ONCE ONE Administration Azithromycin 500 mg/ Sodium 250 mls @ 250 mls/hr 08/26/24 18:15 08/26/24 19:44 Chloride IV 08/26/24 18:16 250 mls/hr ONCE ONE Administration Iopamidol 70 ml 08/26/24 18:54 08/26/24 18:55 Iopamidol-370 (76%);100ml Bottle IV 08/26/24 18:55 70 ml ONCE ONE Administration Methylprednisolone Sodium Succinate 125 mg 08/26/24 18:05 08/26/24 18:11 Methylprednisolone Sod Succ 125mg Vial IV 08/26/24 18:06 125 mg ONCE ONE Administration Sodium Chloride 40 ml 08/26/24 18:54 08/26/24 18:55 0.9 % Sodium Chloride 50 Ml Vial IV 08/26/24 18:55 40 ml ONCE ONE Administration ORDERS Category Date Time Status CT angio chest PE protocol Stat Cat Scan 08/26/24 18:20 Completed Complete Blood Count Auto Diff Stat Lab 08/26/24 18:00 Completed Comprehensive Metabolic Panel Stat Lab 08/26/24 18:00 Completed D-Dimer Stat Lab 08/26/24 18:00 Completed Full Resp Panel w/COVID (H) Routine Lab 08/26/24 18:18 Completed HCG Qualitative, Serum Stat Lab 08/26/24 18:00 Completed NT Pro Brain Natriuretic Pep. Stat Lab 08/26/24 18:00 Completed PT INR [Prothrombin Time INR] Stat Lab 08/26/24 18:00 Completed PTT [Activated Partial Thrombo Time] Stat Lab 08/26/24 18:00 Completed Troponin I Q3H Lab 08/26/24 21:15 Ordered Troponin I Q3H Lab 08/27/24 00:15 Ordered Troponin I Stat Lab 08/26/24 18:00 Completed Blood Culture Stat Micro 08/26/24 19:02 Received VBG [Venous Blood Gas] Stat RT 08/26/24 18:05 Completed MDM Narrative Medical Decision Narrative: 44-year-old female presenting with shortness of breath. 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 States that she has been using albuterol nebulizer treatments at home without relief. Started having worsening shortness of breath 5 days prior to this and has not been getting any better. No fevers or chills, but cough is productive of dark green sputum in the mornings, clears up through the end of the day. This is abnormal for. She usually has a dry cough, but it is never productive and what is not usually thick and clear phlegm. History obtained with patient. On arrival, patient hemodynamically stable, alert, oriented x4, appropriate, GCS 15, moving all extremities spontaneously, pupils equal and reactive to light. Full physical exam performed and significant for obese, uncomfortable on exam. In obvious respiratory distress. She is tachypneic, but speaking full sentences. She is retracting, increased work of breathing, prolonged expiratory phase, lungs have quiet sounds throughout, but expiratory wheezes. Differential includes bronchitis, pneumonia, reactive airway disease, COPD exacerbation, PE, pneumothorax, hypoxemic versus hypercapnic respiratory failure, sepsis, among others. Patient was given DuoNebs, Solu-Medrol, IV magnesium for symptomatic management and correction of underlying abnormalities. Patient placed on continuous cardiac monitoring and continuous pulse ox with initial blood pressure 118/71, heart rate 87, saturation 96% on 3 L nasal cannula. Independent interpretation of EKG shows sinus rhythm 90 bpm with DE 144, QRS 86, QTc 379. No acute ischemic change. Workup independently interpreted and significant for white count elevated 13.5 with relative neutrophilia. Patient's coags are normal, but D-dimer elevated at 0.81. Given the acute change, CT PE was ordered. VBG with pH of 7.45, CO2 normal at 38, bicarb normal at 25.9, lactate elevated at 3.1, likely secondary to work of breathing. Chemistry nonactionable, troponin and BNP negative. Patient's viral swab positive for human metapneumovirus. On independent interpretation of imaging, no acute PE, no lobar consolidation. See radiology read for full review of final results. Heart score 1. On reevaluation, patient feeling much better after DuoNebs. She states that she has been on levofloxacin and steroid for the last few days. Because of this, and cough getting worse and more productive, I plan to switch her to doxycycline. Continue taking steroid at home, will also send DuoNebs to the pharmacy. She feels comfortable with this.. Given patient presentation, workup, history, this most likely represents COPD exacerbation in the setting of human metapneumovirus infection. Because patient at baseline without signs or symptoms of clinical decompensation, deemed appropriate for discharge. Results were relayed to patient who voiced understanding and were agreeable to outpatient management and follow up. I discussed my clinical impression with patient and answered all questions. At this time, the evidence for any other entities in the differential is insufficient to warrant any further testing or ED observation. This was explained as well. Advisory was given that persistent or worsening symptoms require further evaluation. I confirmed the understanding of this discussion. Grinder Operator External Tool disclaimer Much of this encounter note is an electronic surgical technologist spoken language to printed text. Electronic surgical technologist of the spoken language may permit errors. Although I have reviewed the note, some errors may still exist.
[2024-08-26 18:27] LABS: HCG Qualitative, Serum Negative (Negative)
[2024-08-26 18:30] VITALS: BP 130/85; PULSE 84; O2SAT 96
[2024-08-26 18:30] LABS: D-Dimer 0.81 ug/mL (0.0-0.5); NT Pro Brain Natriuretic Pep. 45.7 pg/mL (0-125)
[2024-08-26 18:33] LABS: Troponin I < 0.01 ng/ml (0.00-0.034)
[2024-08-26] MEDS: IOPAMIDOL-370 (76%);100ML BOTTLE 70 ML IV (18:55)
[2024-08-26] MEDS: 0.9 % SODIUM CHLORIDE 50 ML VIAL 40 ML IV (18:55)
[2024-08-26] MEDS: SODIUM CHLORIDE 0.9% 10ML SYR (RAD ONLY) 10 ML IV (18:56)
[2024-08-26 19:02] LABS: Adenovirus,PCR Not Detected (NotDetected); Bordetella Pertussis Not Detected (NotDetected); Chlamydophila Pneumoniae, PCR Not Detected (NotDetected); Coronavirus 19, PCR Not Detected (NotDetected); Coronavirus 229E Not Detected (NotDetected); Coronavirus NL63 Not Detected (NotDetected); Coronavirus OC43 Not Detected (NotDetected); Coronovirus HKU1,PCR Not Detected (NotDetected); Influenza A, PCR Not Detected (NotDetected); Influenza AH1, 2009 Not Detected (NotDetected); Influenza AH1, PCR Not Detected (NotDetected); Influenza AH3,PCR Not Detected (NotDetected); Influenza B, PCR Not Detected (NotDetected); Mycoplasma Pneumoniae, PCR Not Detected (NotDetected); Parainfluenza 1, PCR Not Detected (NotDetected); Parainfluenza 2, PCR Not Detected (NotDetected); Parainfluenza 3, PCR Not Detected (NotDetected); Parainfluenza 4, PCR Not Detected (NotDetected); Respiratory Syncytial Virus Not Detected (NotDetected); Rhinovirus/Enterovirus Not Detected (NotDetected)
[2024-08-26] MEDS: CEFTRIAXONE SODIUM 2 GM in 0.9 % SODIUM CHLORIDE 100 ML IV (19:05)
[2024-08-26] MEDS: AZITHROMYCIN 500 MG in 0.9 % SODIUM CHLORIDE 250 ML 250 MG IV (19:44)
[2024-08-26 20:22] LABS: Human Metapneumovirus Detected (NotDetected)
[2024-08-26 21:51] VITALS: BP 126/77; PULSE 81; RESP 16; TEMP 36.7; O2SAT 95
[2024-08-26 22:12] LABS: Reflex Lactic Add Lactic Reflex
== END 2024-08-26 21:52 | disposition home or self-care (01) ==
PROVIDERS: Emergency Provider Emergency Medicine; PCP Family Medicine
DX: J44.1 Chronic obstructive pulmonary disease with (acute) exacerbation (principal); J20.8 Acute bronchitis due to other specified organisms; B97.81 Human metapneumovirus as the cause of diseases classified elsewhere; R74.02 Elevation of levels of lactic acid dehydrogenase [LDH]
CPT/HCPCS: 0223U; 71275; 80053; 82803; 83880; 84484; 84703; 85025; 85378; 85610; 85730; 87040; 87633; 93005; 96365; 96375; 99285; J0456; J0696; J2919; J3475; J7050; Q9967